=== PATIENT | male | born 1955 | race Caucasian/White ===

== ENCOUNTER 2018-10-26 07:52 | Day surgery (SDC) | payer OTHER ==
[~2018-10-26] VITALS: Ht 167.6 cm; Wt 110.5 kg
[2018-10-26 08:59] VITALS: Ht 167.6 cm; Wt 110.5 kg
[2018-10-26] MEDS ORDERED: METF-849 PO (09:03)
[2018-10-26] MEDS ORDERED: METO-335 PO (09:03)
--- NOTE | 2018-10-26 09:05 | PREAC ---
Date/Time of Note Date/Time of Note DATE: 10/26/18 TIME: 09:03 Anesthesia Eval and Record Evaluation Time Pre-Procedure Interview DATE: 10/26/18 TIME: 09:03 Age 63 Sex male NPO: 8 hrs Preoperative diagnosis screening, change in bowel habits Planned procedure colonoscopy Past Medical History Past Medical History: Includes (sciatica) Cardio: HTN, Dyslipidemia Endo: Diabetes GI: Obesity Surgery & Anesthesia Issues No known issue Meds Anticoagulation: No Beta Manjinder within 24 hr: Yes Reported Medications Metoprolol Succinate* (Toprol XL*) 25 Mg Tab.sr.24h, 20 MG PO DAILY, #30 TAB 10/26/18 Metformin* (Glucophage*) 500 Mg Tab, 500 MG PO BID WITH MEALS, #90 TAB 10/26/18 Meds reviewed: Yes Allergies Coded Allergies: Penicillins (Verified Allergy, Mild, RASH, 10/26/18) Allergies Reviewed: Yes Labs/Studies Labs Reviewed: Reviewed by anesthesiologist test: N/A Pre-procedure Exam Airway: Adequate mouth opening, Adequate thyromental dist Mallampati: Mallampati II Teeth: Normal Lung: Normal Heart: Normal ASA Physical Status ASA physical status: 2 Emergency: None Pre-operative Attestations Prior to commencing anesthesia and surgery, the patient was re-evaluated, there was verification of: *The patient's identity *The results of appropriate recent lab work and preoperative vital signs *The above evaluation not changing prior to induction *Anesthetic plan, risk benefits, alternative and complications discussed with patient/family; questions answered; patient/family understands, accepts and wishes to proceed. Pelletizer Tender used AILEEN BAEZA Oct 26, 2018 09:05
[2018-10-26] MEDS ORDERED: PROPOFOL 40 ML ONE (09:06)
[2018-10-26] MEDS ORDERED: LIDOCAINE 2% (SDV) 5 ML INJ ONE (09:06)
[2018-10-26] MEDS ORDERED: FENTAnyl 50 MCG/ML VIAL IV PRN (09:30)
[2018-10-26] MEDS ORDERED: ONDANSETRON 4 MG INJ IV PRN (09:30)
[2018-10-26] MEDS ORDERED: ALBUTEROL 0.083% (NEB) 2.5 MG/3 ML AMP HHN PRN (09:30)
[2018-10-26] MEDS ORDERED: ACETAMINOPHEN 500 MG TAB PO PRN (09:30)
[2018-10-26 09:33] VITALS: BP 185/95; PULSE 57; RESP 20
[2018-10-26] MEDS ORDERED: PROPOFOL 20 ML ONE ×2 (10:50)
--- NOTE | 2018-10-26 10:50 | PAC ---
Date/Time of Note Date/Time of Note DATE: 10/26/18 TIME: 10:49 Post-Anesthesia Notes Post-Anesthesia Note Last documented vital signs Vital Signs Date Temp Pulse Resp B/P (MAP) Pulse Ox O2 O2 Flow FiO2 Time Delivery Rate 10/26/18 98.2 57 20 185/95 100 Room Air 10:33 (125) Activity: WNL Respiratory function: WNL Cardiovascular function: WNL Mental status: Baseline Pain reasonably controlled: Yes Hydration appropriate: Yes Nausea/Vomiting absent: Yes CAROLYN GIRON MD Oct 26, 2018 10:49
== END 2018-10-26 16:00 | disposition home or self-care (01) ==
LOC: GIL 07:52
PROVIDERS: ATTEND Internal Medicine Gastroenterology
DX: Z12.11 Encounter for screening for malignant neoplasm of colon (principal); K64.8 Other hemorrhoids; D12.5 Benign neoplasm of sigmoid colon; D12.3 Benign neoplasm of transverse colon; E11.9 Type 2 diabetes mellitus without complications; I10 Essential (primary) hypertension; E78.5 Hyperlipidemia, unspecified; E66.9 Obesity, unspecified; Z68.39 Body mass index [BMI] 39.0-39.9, adult
CPT/HCPCS: 45380; 45385; 82962; 88305; Z7610